=== PATIENT | male | born 1985 | race Caucasian/White ===

== ENCOUNTER 2018-09-22 19:15 | Emergency (ER) | payer BC ==
[2018-09-22] MEDS ORDERED: Gelatin Sponge,Absorbable 12-7 mm Sponge TOP ONE (19:26)
[2018-09-22] MEDS ORDERED: Diphtheria,Pertussis(Acell),Tetanus Vaccine 0.5 ML Syringe IM ONE (19:55)
--- NOTE | 2018-09-22 19:58 | EDM.PDOC ---
ED HPI GENERAL MEDICAL PROBLEM - General Chief Complaint: Laceration Stated Complaint: CUT LT INDEX FINGER Time Seen by Provider: 09/22/18 19:36 - History of Present Illness INITIAL COMMENTS - FREE TEXT/NARRATIVE: HISTORY AND PHYSICAL: History of present illness: The patient is a 32-year-old male who was in his usual state of good health when he was cutting some farias at home and cut the distal soft tissue of his left index finger. The patient is right-hand dominant and he is unsure of his last tetanus shot. He said he was cutting the farias and got distracted and cut a small piece of tissue off and only came into the ED because it would not stop bleeding. He otherwise has no systemic complaints and he was in good health prior to these events. He says that there is some minor pain at the area of the wound but the remainder of the finger he can move and there is no other issues with that finger or the remainder of the hand Review of systems: As per history of present illness and below otherwise all systems reviewed and negative. Past medical history: As per history of present illness and as reviewed below otherwise noncontributory. Surgical history: As per history of present illness and as reviewed below otherwise noncontributory. Social history: No reported history of drug or alcohol abuse. Family history: As per history of present illness and as reviewed below otherwise noncontributory. Physical exam: General: Well-developed well-nourished man who is nontoxic and vital signs are noted by me HEENT: Atraumatic, normocephalic,, negative for conjunctival pallor or scleral icterus, mucous membranes moist, throat clear, neck supple, nontender, trachea midline. Lungs: Clear to auscultation, breath sounds equal bilaterally, chest nontender. Heart: S1S2, regular rate and rhythm no overt murmurs Abdomen: Soft, nondistended, nontender. NABS Pelvis: Deferred Genitourinary: Deferred. Rectal: Deferred. Extremities: Atraumatic, and full range of motion of all extremities with the exception of the radial aspect of the left index finger where there is a soft tissue loss measuring 1.75 x 0.5 cm in an oval-like shape. There is oozing of blood at the area and the nail and nailbed are intact. The patient can flex and extend at the digit against resistance and there are no palpable bony deformities. On palpation and visual inspection the wound does not appear to be deep enough to involve the bony tuft of the finger Neurovascular unremarkable. Neuro: Awake, alert, oriented. Cranial nerves II through XII unremarkable. Cerebellum unremarkable. Motor and sensory unremarkable throughout. Exam nonfocal. Diagnostics: X-ray left index finger Therapeutics: Tdap, irrigation and cleansing and wound, Surgicel and tube gauze dressing Impression: Laceration of left index finger with soft tissue loss Definitive disposition and diagnosis as appropriate pending reevaluation and review of above. left index Pain Score (Numeric/FACES): 3 - Related Data Allergies Allergy/AdvReac Type Severity Reaction Status Date / Time No Known Allergies Allergy Verified 09/22/18 19:57 Home Meds: Home Meds . [No Known Home Meds] 09/22/18 [History] ED ROS GENERAL - Review of Systems Review Of Systems: ROS reveals no pertinent complaints other than HPI. ED EXAM, SKIN/RASH Exam: See Below (See dictation) Course - Vital Signs Last Recorded V/S: Last Vital Signs Temp 36.6 C 09/22/18 19:15 Pulse 93 09/22/18 19:15 Resp 18 09/22/18 19:15 BP 166/105 H 09/22/18 19:15 Pulse Ox 95 09/22/18 19:15 - Orders/Labs/Meds Orders: Active Orders 24 hr Category Date Time Status Communication Order [RC] STAT Care 09/22/18 19:55 Active Vaccines to be Administered [RC] PER UNIT ROUTINE Care 09/22/18 19:55 Active Fingers Second Digit Lt F1 [CR] Stat Exams 09/22/18 19:58 Taken Meds: Medications Discontinued Medications Generic Name Dose Route Start Last Admin Trade Name Freq PRN Reason Stop Dose Admin Diphtheria/Tetanus/Acell Pertussis 0.5 ml 09/22/18 19:55 Adacel IM 09/22/18 19:56 .ONCE ONE Departure - Departure Time of Disposition: 20:11 Disposition: Home, Self-Care 01 Condition: Good Clinical Impression: Laceration of left index finger Qualifiers: Encounter type: initial encounter Damage to nail status: without damage Foreign body presence: without foreign body Qualified Code(s): S61.211A - Laceration without foreign body of left index finger without damage to nail, initial encounter - Discharge Information Referrals: PCP,None [Primary Care Provider] - Forms: ED Department Discharge Additional Instructions: The following information is given to patients seen in the emergency department who are being discharged to home. This information is to outline your options for follow-up care. We provide all patients seen in our emergency department with a follow-up referral. The need for follow-up, as well as the timing and circumstances, are variable depending upon the specifics of your emergency department visit. If you don't have a primary care physician on staff, we will provide you with a referral. We always advise you to contact your personal physician following an emergency department visit to inform them of the circumstance of the visit and for follow-up with them and/or the need for any referrals to a consulting specialist. The emergency department will also refer you to a specialist when appropriate. This referral assures that you have the opportunity for followup care with a specialist. All of these measure are taken in an effort to provide you with optimal care, which includes your followup. Under all circumstances we always encourage you to contact your private physician who remains a resource for coordinating your care. When calling for followup care, please make the office aware that this follow-up is from your recent emergency room visit. If for any reason you are refused follow-up, please contact the [facility] emergency department at and ask to speak to the emergency department charge nurse. [facility]-Plastic Surgery and Hand Surgery [address] [id number] Keep the dressing that was placed on in the ED for the next 24 hours then remove and you may gently cleanse with water. The Surgicel will fall off when it is ready so do not pull off or removed. Do not use Band-Aids or occlusive dressings and only use breathable dressings or nonstick dressings. You may follow-up with our hand specialist for further care and evaluation of the finger and return to ER as needed and as discussed. Please use the Keflex you have been given from [employer] to prevent infection - My Orders Last 24 Hours: My Active Orders 09/22/18 19:55 Communication Order [RC] STAT Vaccines to be Administered [RC] PER UNIT ROUTINE 09/22/18 19:58 Fingers Second Digit Lt F1 [CR] Stat - Assessment/Plan Last 24 Hours: My Active Orders 09/22/18 19:55 Communication Order [RC] STAT Vaccines to be Administered [RC] PER UNIT ROUTINE 09/22/18 19:58 Fingers Second Digit Lt F1 [CR] Stat
--- NOTE | 2018-09-22 20:47 | CR ---
HISTORY: Left 2nd digit injury. TECHNIQUE: Three views of the 2nd digit of the left hand. COMPARISON: No prior. FINDINGS: No acute fracture. No joint space narrowing or malalignment. There is cortical lucency involving the palmar aspect of the middle phalanx of the 2nd digit which likely indicates a lytic lesion. This is un likely to relate to acute trauma. Consider further evaluation with MRI. No radiopaque foreign body. IMPRESSION: 1. No acute fracture or malalignment. 2. Lytic lesion involving the anterior cortex of the middle phalanx of the 2nd digit. Consider MRI for further evaluation. Note that this is unlikely to relate to acute trauma and may reflect a small bone tumor. Dictated by Pradip Trent MD @ 09/22/2018 8:45:35 PM Dictated by: Pradip Trent MD @ 09/22/2018 20:45:40 (Electronically Signed)
== END 2018-09-22 20:57 | disposition home or self-care (01) ==
LOC: MW.ED 19:25
DX: S61.211A Laceration without foreign body of left index finger without damage to nail, initial encounter (principal); Z23 Encounter for immunization; W45.8XXA Other foreign body or object entering through skin, initial encounter
CPT/HCPCS: 73140-26-F1; 73140-F1; 90471; 90715; 99283-25